=== PATIENT | female | born 1960 | race Caucasian/White ===

== ENCOUNTER 2017-03-05 07:18 | Inpatient (IN) | payer BC ==
[2017-03-05] MEDS ORDERED: 0.9 % SODIUM CHLORIDE 1,000 ML BAG IV ONE (07:44)
[2017-03-05 07:53] LABS: BASO % 0.3 % (0-6); HEMATOCRIT 38.7 % (35.0-47.0); LYMPH % 19.1 % (16-45); MEAN CELL VOLUME 89.6 fl (81-97); MEAN CORPUSCULAR HEMOGLOBIN 30.1 pg (27-33); MEAN CORPUSCULAR HGB CONC 33.6 g/dl (32-36); MEAN PLATELET VOLUME 9.5 fl (7.4-10.4); MONO % 6.6 % (0-9); PLATELET COUNT 303 K/uL (130-400); RED BLOOD COUNT 4.32 M/uL (3.80-5.40); WHITE BLOOD COUNT W/O DIFF 7.9 K/uL (4.2-12.2)
[2017-03-05 08:09] LABS: ALB/GLOB RATIO 1.3 (1.1-1.8); ALBUMIN 4.4 gm/dL (3.5-5.0); ALKALINE PHOSPHATASE 84 U/L (38-126); ALT/SGPT 50 U/L (9-52); ANION GAP 12.4 (7-16); AST/SGOT 18 U/L (14-36); BILIRUBIN,TOTAL 0.82 mg/dL (0.2-1.3); BLOOD UREA NITROGEN 15 mg/dL (7-17); CARBON DIOXIDE 25.6 mmol/L (22-30); CREATININE 0.9 mg/dL (0.52-1.04); EST GLOMERULAR FILTRATION RATE > 60 ml/min; GLUCOSE,RANDOM 98 mg/dL (70-110); LIPASE 170 U/L (23-300); TOTAL PROTEIN 7.7 gm/dL (6.3-8.2)
--- NOTE | 2017-03-05 09:00 | Emergency Department Record ---
History of Present Illness - General Chief Complaint: Abdominal Pain Stated Complaint: ABD PAIN Time Seen by Provider: 03/05/17 07:36 Source: Patient Mode of Arrival: Ambulatory Limitations: No limitations - History of Present Illness Initial Comments: pt has had intermittant abd pain for 5 days. it started with a hard bout of vomiting. pn is severe when it comes. it causes distention. pt has had no further n/v and has had no c/d. MD Complaint: Abdominal pain Onset/Timin -: Days(s) Location: Periumbilical Radiation: None Migration to: No migration Severity: Severe Quality: Cramping, Sharp Consistency: Intermittent Improves With: Nothing Worsens With: Nothing Associated Symptoms: Denies other symptoms, Vomiting - Related Data Patient : No Home Medications Medication Instructions Recorded Confirmed Last Taken No Home Med [NO HOME MEDS] 03/05/17 03/05/17 Unknown Allergies Allergy/AdvReac Type Severity Reaction Status Date / Time No Known Drug Allergies Allergy Verified 03/05/17 07:28 Travel Screening - Travel/Exposure Within Last 30 Days Have you traveled within the last 30 days?: No Review of Systems Reviewed: No additional complaints except as noted below Constitutional: Reports: As per HPI. Denies: Chills, Fever, Malaise, Night sweats, Weakness, Weight change Eyes: Reports: As per HPI. Denies: Eye discharge, Eye pain, Photophobia, Vision change ENT: Reports: As per HPI. Denies: Congestion, Dental pain, Ear pain, Epistaxis , Hearing loss, Throat pain Respiratory: Reports: As per HPI. Denies: Cough, Dyspnea, Hemoptysis, Stridor, Wheezes Cardiovascular: Reports: As per HPI. Denies: Arrhythmia, Chest pain, Dyspnea on exertion, Edema, Murmurs, Orthopnea, Palpitations, Paroxysmal nocturnal dyspnea, Rheumatic Fever, Syncope Endocrine: Reports: As per HPI. Denies: Fatigue, Heat or cold intolerance, Polydipsia, Polyuria Gastrointestinal: Reports: As per HPI. Denies: Abdominal pain, Constipation, Diarrhea, Hematemesis, Hematochezia, Melena, Nausea, Vomiting Genitourinary: Reports: As per HPI. Denies: Abnormal menses, Discharge, Dyspareunia, Dysuria, Frequency, Hematuria, Incontinence, Retention, Urgency Musculoskeletal: Reports: As per HPI. Denies: Arthralgia, Back pain, Gout, Joint swelling, Myalgia, Neck pain Skin: Reports: As per HPI. Denies: Bruising, Change in color, Change in hair/ nails, Lesions, Pruritus, Rash Neurological: Reports: As per HPI. Denies: Abnormal gait, Confusion, Headache, Numbness, Paresthesias, Seizure, Tingling, Tremors, Vertigo, Weakness Psychiatric: Reports: As per HPI. Denies: Anxiety, Auditory hallucinations, Depression, Homicidal thoughts, Suicidal thoughts, Visual hallucinations Hematological/Lymphatic: Reports: As per HPI. Denies: Anemia, Blood Clots, Easy bleeding, Easy bruising, Swollen glands Past Medical History - SOCIAL HISTORY Smoking Status: Never smoker Alcohol Use: Rare Drug Use: None - RESPIRATORY Hx Respiratory Disorders: No - CARDIOVASCULAR Hx Cardio Disorders: No - NEURO Hx Neuro Disorders: No - GI Hx GI Disorders: Yes Hx Abdominal Pain: Yes - Hx Genitourinary Disorders: No - ENDOCRINE Hx Endocrine Disorders: No - MUSCULOSKELETAL Hx Musculoskeletal Disorders: No - PSYCH Hx Psych Problems: No - HEMATOLOGY/ONCOLOGY Hx Hematology/Oncology Disorders: No Family Medical History Any Significant Family History?: No Physical Exam - General General Appearance: Alert, Oriented x3, Cooperative, Mild distress - Head Head exam: Normal inspection - Eye Eye exam: Normal appearance, PERRL, EOMI Pupils: Normal accommodation - ENT ENT exam: Normal exam, Mucous membranes moist, Normal external ear exam, Normal orophraynx Ear exam: Normal external inspection. negative: External canal tenderness Nasal Exam: Normal inspection. negative: Discharge, Sinus tenderness Mouth exam: Normal external inspection, Tongue normal Teeth exam: Normal inspection. negative: Dental caries Throat exam: Normal inspection. negative: Tonsillar erythema, Tonsillar exudate - Neck Neck exam: Normal inspection, Full ROM. negative: Tenderness - Respiratory Respiratory exam: Normal lung sounds bilaterally. negative: Respiratory distress - Cardiovascular Cardiovascular Exam: Normal rhythm, Normal heart sounds, Tachycardia - GI/Abdominal GI/Abdominal exam: Soft, Normal bowel sounds, Tenderness (epigastric) - Rectal Rectal exam: Deferred - exam: Deferred - Extremities Extremities exam: Normal inspection, Full ROM, Normal capillary refill. negative: Tenderness - Back Back exam: Reports: Normal inspection, Full ROM. Denies: Muscle spasm, Rash noted, Tenderness - Neurological Neurological exam: Alert, CN II-XII intact, Normal gait, Oriented X3 - Psychiatric Psychiatric exam: Normal affect, Normal mood - Skin Skin exam: Dry, Intact, Normal color, Warm Course Vital Signs 03/05/17 07:23 Temperature 97.9 F Pulse Rate 103 H Respiratory 20 Rate Blood Pressure 143/104 Pulse Ox 97 Medical Decision Making - Lab Data Result diagrams: 03/05/17 07:48 03/05/17 07:48 Lab Results 03/05/17 03/05/17 Range/Units 07:48 07:48 WBC 7.9 (4.2-12.2) K/uL RBC 4.32 (3.80-5.40) M/uL Hgb 13.0 (11.6-16.0) gm/dl Hct 38.7 (35.0-47.0) % MCV 89.6 (81-97) fl MCH 30.1 (27-33) pg MCHC 33.6 (32-36) g/dl RDW 12.0 (11.5-14.5) % Plt Count 303 (130-400) K/uL MPV 9.5 (7.4-10.4) fl Gran % 72.0 (47-80) % Lymphocytes % 19.1 (16-45) % Monocytes % 6.6 (0-9) % Eosinophils % 2.0 (0-6) % Basophils % 0.3 (0-6) % Sodium 141 (136-145) mmol/L Potassium 4.2 (3.5-5.1) mmol/L Chloride 103 (98-107) mmol/L Carbon Dioxide 25.6 (22-30) mmol/L Anion Gap 12.4 (7-16) BUN 15 (7-17) mg/dL Creatinine 0.9 (0.52-1.04) mg/dL Estimated GFR > 60 ml/min Random Glucose 98 (70-110) mg/dL Calcium 10.0 (8.5-10.1) mg/dL Total Bilirubin 0.82 (0.2-1.3) mg/dL AST 18 (14-36) U/L ALT 50 (9-52) U/L Alkaline Phosphatase 84 (38-126) U/L Total Protein 7.7 (6.3-8.2) gm/dL Albumin 4.4 (3.5-5.0) gm/dL Globulin 3.3 (1.4-4.8) gm/dL Albumin/Globulin Ratio 1.3 (1.1-1.8) Lipase 170 (23-300) U/L Disposition Disposition: Admit Clinical Impression: Acute pancreatitis Qualifiers: Pancreatitis type: idiopathic Acute pancreatitis complication: unspecified Qualified Code(s): K85.00 - Idiopathic acute pancreatitis without necrosis or infection Disposition: Still a Patient at [facility] Decision to Admit: Admit from ER Decision to Admit Date: 03/05/17 Decision to Admit Time: 10:45 Forms: Patient Portal Access Quality - Quality Measures Quality Measures: N/A - Blood Pressure Screening Does Patient Have Any of the Following: No Blood Pressure Classification: Hypertensive Reading Systolic Measurement: 143 Diastolic Measurement: 104 Screening for High Blood Pressure: < First Hypertensive BP, F/U Documented > [ [id number]] First Hypertensive Follow-up Interventions: Follow-up with rescreen GT 1 day and LT 4 weeks.
[2017-03-05 09:56] LABS: URINE APPEARANCE CLEAR; URINE BILIRUBIN NEGATIVE (NEGATIVE); URINE BLOOD TRACE-I (NEGATIVE); URINE COLOR YELLOW; URINE GLUCOSE (UA) NEGATIVE (NEGATIVE); URINE KETONE TRACE (NEGATIVE); URINE NITRITE NEGATIVE (NEGATIVE); URINE PROTEIN NEGATIVE (NEGATIVE); URINE UROBILINOGEN 0.2 E.U./dL (0.20 - 1.00)
[2017-03-05 10:15] LABS: URINE BACTERIA FEW; URINE EPITHELIAL CELLS 0 - 2 (FEW); URINE LEUKOCYTE ESTERASE TRACE (NEGATIVE); URINE RBC 0 - 2 (NONE SEEN); URINE WBC 0 - 2 (0-2/hpf)
--- NOTE | 2017-03-05 11:18 | History & Physical ---
History of Present Illness - Date of Service Date of Service for History & Physical: 03/05/17 - History of Present Illness History of Present Illness: 56 yo female admitted w/ acute pancreatitis. PMHx is unremarkable. Patient presented w/ 5 days of abdominal pain. Described as bloating, pressure , sharp. Intermittent, Located in epigastrium and RUQ. Aggravated by any po intake including water. Alleviated by sitting still, fasting. Associated symptoms include nausea, vomiting, loose stool, dizziness/fever (none since last sunday), gas and bloating. In addition, patient reports 15-20 lb's unintentional weight loss. upon presentation, T 97.9, HR 103, BP 143/104, RR 20, pulse ox 97. CBC, CMP relatively unremarkable. amylase, lipase and lactic acid are normal. CTA: suggests pancreatitis. Patient given IV bolus of NS and admitted for further medical management. This afternoon, patient is lying in bed with family at bedside. Admits to intermittent epigastric pain radiating to RUQ of abdomen. States she's frustrated and doesn't understand why she has pancreatitis. Denies fever, chills, n/v, cough, sob, cp, headache, dizziness, lightheadedness, dysuria, hematuria, or skin color changes. She denies any h/o gallbladder & pulmonary issues. No ETOH use. denies h/o smoking or drug use. She's not on any outpatient medications. No family h/o autoimmune disease. Does not have a family doctor. Denies recent hospitalization, sick contacts or travel. 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 States she went to an urgent care in December. She was told she was dehydrated and had a possible infection. She was started on Cephalexin at that time. Cephalexin was then stopped as this caused her loose, watery stool. She states that since being on Cephalexin, she has experienced 2-3 loose stools daily. Believes she's lost 15-20 #'s unintentionally since December. Patient looking to move closer to [place] and would like to est care with PCP in that area. PCP: None Travel Screening - Travel/Exposure Within Last 30 Days Have you traveled within the last 30 days?: No Review of Systems Constitutional: Reports: As per HPI. Denies: Chills, Fever, Malaise, Night sweats, Weakness, Weight change Eyes: Reports: As per HPI. Denies: Eye discharge, Eye pain, Photophobia, Vision change ENT: Reports: As per HPI. Denies: Congestion, Dental pain, Ear pain, Epistaxis , Hearing loss, Throat pain Respiratory: Reports: As per HPI. Denies: Cough, Dyspnea, Hemoptysis, Stridor, Wheezes Cardiovascular: Reports: As per HPI. Denies: Arrhythmia, Chest pain, Dyspnea on exertion, Edema, Murmurs, Orthopnea, Palpitations, Paroxysmal nocturnal dyspnea, Rheumatic Fever, Syncope Endocrine: Reports: As per HPI. Denies: Fatigue, Heat or cold intolerance, Polydipsia, Polyuria Gastrointestinal: Reports: As per HPI, Abdominal pain (epigastric, RUQ, no R/G) . Denies: Constipation, Diarrhea, Hematemesis, Hematochezia, Melena, Nausea, Vomiting Genitourinary: Reports: As per HPI. Denies: Abnormal menses, Discharge, Dyspareunia, Dysuria, Frequency, Hematuria, Incontinence, Retention, Urgency Musculoskeletal: Reports: As per HPI. Denies: Arthralgia, Back pain, Gout, Joint swelling, Myalgia, Neck pain Skin: Reports: As per HPI. Denies: Bruising, Change in color, Change in hair/ nails, Lesions, Pruritus, Rash Neurological: Reports: As per HPI. Denies: Abnormal gait, Confusion, Headache, Numbness, Paresthesias, Seizure, Tingling, Tremors, Vertigo, Weakness Psychiatric: Reports: As per HPI. Denies: Anxiety, Auditory hallucinations, Depression, Homicidal thoughts, Suicidal thoughts, Visual hallucinations Hematological/Lymphatic: Reports: As per HPI. Denies: Anemia, Blood Clots, Easy bleeding, Easy bruising, Swollen glands Past Medical History - SOCIAL HISTORY Smoking Status: Never smoker Alcohol Use: Rare Drug Use: None - RESPIRATORY Hx Respiratory Disorders: No - CARDIOVASCULAR Hx Cardio Disorders: No - NEURO Hx Neuro Disorders: No - GI Hx GI Disorders: Yes Hx Abdominal Pain: Yes - Hx Genitourinary Disorders: No - ENDOCRINE Hx Endocrine Disorders: No - MUSCULOSKELETAL Hx Musculoskeletal Disorders: No - PSYCH Hx Psych Problems: No - HEMATOLOGY/ONCOLOGY Hx Hematology/Oncology Disorders: No Family Medical History Any Significant Family History?: No H&P Meds/Allergies - Allergies Allergies: Allergies Allergy/AdvReac Type Severity Reaction Status Date / Time No Known Drug Allergies Allergy Verified 03/05/17 07:28 - Home Medications Home Medications Medication Instructions Recorded Confirmed Last Taken No Home Med [NO HOME MEDS] 03/05/17 03/05/17 Unknown Physical Exam - Vital Signs Vital Signs: Vital Signs - Last 24 Hrs Temp Pulse Pulse Resp BP BP Pulse Ox 03/05/17 10:00 97.9 F 81 20 147/99 98 03/05/17 07:23 97.9 F 103 H 20 143/104 97 - General General Appearance: Alert, Oriented x3, Cooperative, No acute distress Limitations: No limitations - Head Head exam: Normal inspection - Eye Eye exam: Normal appearance, PERRL, EOMI Pupils: Normal accommodation - ENT ENT exam: Normal exam, Mucous membranes moist, Normal external ear exam, Normal orophraynx Ear exam: Normal external inspection. negative: External canal tenderness Nasal Exam: Normal inspection. negative: Discharge, Sinus tenderness Mouth exam: Normal external inspection, Tongue normal Teeth exam: Normal inspection. negative: Dental caries Throat exam: Normal inspection. negative: Tonsillar erythema, Tonsillar exudate - Neck Neck exam: Normal inspection, Full ROM. negative: Tenderness - Respiratory Respiratory exam: Normal lung sounds bilaterally. negative: Respiratory distress - Cardiovascular Cardiovascular Exam: Regular rate, Normal rhythm, Normal heart sounds - GI/Abdominal GI/Abdominal exam: Soft, Normal bowel sounds, Tenderness (epigastric, RUQ, ). negative: Guarding, Rebound - Rectal Rectal exam: Deferred - exam: Deferred - Extremities Extremities exam: Normal inspection, Full ROM, Normal capillary refill. negative: Tenderness - Back Back exam: Reports: Normal inspection, Full ROM. Denies: Muscle spasm, Rash noted, Tenderness - Neurological Neurological exam: Alert, CN II-XII intact, Normal gait, Oriented X3 - Psychiatric Psychiatric exam: Normal affect, Normal mood - Skin Skin exam: Dry, Intact, Normal color, Warm Results - Labs Result Diagrams: 03/05/17 07:48 03/05/17 07:48 Labs Last 24 Hours: Laboratory Results - last 24 hr 03/05/17 03/05/17 03/05/17 07:30 07:48 07:48 WBC 7.9 RBC 4.32 Hgb 13.0 Hct 38.7 MCV 89.6 MCH 30.1 MCHC 33.6 RDW 12.0 Plt Count 303 MPV 9.5 Gran % 72.0 Lymphocytes % 19.1 Monocytes % 6.6 Eosinophils % 2.0 Basophils % 0.3 Sodium 141 Potassium 4.2 Chloride 103 Carbon Dioxide 25.6 Anion Gap 12.4 BUN 15 Creatinine 0.9 Estimated GFR > 60 Random Glucose 98 Lactic Acid Calcium 10.0 Total Bilirubin 0.82 AST 18 ALT 50 Alkaline Phosphatase 84 Total Protein 7.7 Albumin 4.4 Globulin 3.3 Albumin/Globulin Ratio 1.3 Amylase 77 Lipase 170 Urine Color Urine Appearance Urine pH Ur Specific [place] Urine Protein Urine Glucose (UA) Urine Ketones Urine Blood Urine Nitrite Urine Bilirubin Urine Urobilinogen Ur Leukocyte Esterase Urine RBC Urine WBC Ur Epithelial Cells Urine Bacteria 03/05/17 03/05/17 09:30 09:50 WBC RBC Hgb Hct MCV MCH MCHC RDW Plt Count MPV Gran % Lymphocytes % Monocytes % Eosinophils % Basophils % Sodium Potassium Chloride Carbon Dioxide Anion Gap BUN Creatinine Estimated GFR Random Glucose Lactic Acid 0.7 Calcium Total Bilirubin AST ALT Alkaline Phosphatase Total Protein Albumin Globulin Albumin/Globulin Ratio Amylase Lipase Urine Color Yellow Urine Appearance Clear Urine pH 5.5 Ur Specific [place] 1.010 Urine Protein Negative Urine Glucose (UA) Negative Urine Ketones Trace H Urine Blood Trace-i Urine Nitrite Negative Urine Bilirubin Negative Urine Urobilinogen 0.2 Ur Leukocyte Esterase Trace H Urine RBC 0 - 2 Urine WBC 0 - 2 Ur Epithelial Cells 0 - 2 Urine Bacteria Few VTE H&P Assessment - Risk for VTE Risk for VTE: Yes Risk Level: Low Risk Assessment Date: 03/05/17 Risk Assessment Time: 12:00 VTE Orders Placed or Will Be Placed: Yes Plan - Inpatient Certification Inpatient Certification: risk factors: pancreatitis, abdominal pain, n/v, decreased appetite, dehydration treatment: NPO, IVFs, IV pain medication, further imaging nights: 2-3 nights home plan: home, self care 03/05/17 13:36 - Detailed Diagnosis and Plan (1) Acute pancreatitis Current Visit: Yes Status: Acute Qualifiers: Pancreatitis type: idiopathic Acute pancreatitis complication: unspecified Qualified Code(s): K85.00 - Idiopathic acute pancreatitis without necrosis or infection Base Code: K85.90 - ACUTE PANCREATITIS WITHOUT NECROSIS OR INFECTION, UNSP Comment: 03/05- unclear etiology? Will check autoimmune labs & obtain abd u/s. - patient denies medication use, etoh use, or h/o gallbladder issues - CTA: pancreatitis, large calified gallstone in the gallbladder - amylase/lipase, lactic acid and wbc normal - afebrile - NPO, ice chips, 125 mls/hr of IVNS, IV pain control and anti emetic PRN - GI referral as outpatient (2) RUQ abdominal pain Current Visit: Yes Status: Acute Base Code: R10.11 - RIGHT UPPER QUADRANT PAIN Comment: 03/05- pancreatitis vs. biliary vs. other? - will obtain abd u/s to further evaluate RUQ pain (3) Full code status Current Visit: Yes Status: Acute Base Code: Z78.9 - OTHER SPECIFIED HEALTH STATUS Comment: 03/05- pt is full code (4) DVT prophylaxis Current Visit: Yes Status: Acute Base Code: [id number] - Comment: 03/05- low risk. SCDs WIB. patient ambulating the room.
[2017-03-05] MEDS ORDERED: 0.9 % SODIUM CHLORIDE 1000ML 1,000 ML IV SCH (12:49)
[2017-03-05] MEDS: 0.9 % SODIUM CHLORIDE 1000ML 1,000 ML IV PRN ×2 (14:36→22:44)
--- NOTE | 2017-03-05 15:45 | CT SCAN REPORT ---
EXAM: CT SCAN ABDOMEN/PELVIS WO CONTRAST HISTORY: ABDOMINAL PAIN WITH NAUSEA FOR FOUR-FIVE DAYS. TECHNIQUE: Helical CT examination of the abdomen and pelvis is performed without oral or intravenous contrast administration. Lack of oral and IV contrast utilization limits evaluation of the bowel and solid viscera respectively. COMPARISON: None. FINDINGS: Minor patchy predominantly linear opacities are noted in each lung base, left slightly greater than right, consistent with atelectasis, scarring, or less likely infiltrate. No lung base consolidation, pleural effusion, nor pericardial effusion. The heart is not enlarged. There is a large calcified stone within the gallbladder body/neck measuring 2.5 cm in diameter. No gross gallbladder wall thickening is, however, seen and there is no definite biliary ductal dilatation. No suspicious focal abnormality demonstrated within the liver, spleen, adrenal glands, nor kidneys. No hydronephrosis. The tail of the pancreas appears mildly thickened with peripancreatic fat stranding suspicious for acute pancreatitis. No definite pancreatic mass. No intraabdominal nor retroperitoneal lymphadenopathy is seen. The abdominal aorta is without aneurysmal dilatation. No pelvic mass nor lymphadenopathy. Trace free fluid is demonstrated in the cul- de-sac. This is nonspecific though likely physiologic. No intrinsic urinary bladder abnormality is seen. There is coarse calcification within the uterine fundus measuring 8 mm. This is likely a small calcified fibroid. No gross bowel dilatation nor bowel wall thickening is seen. Occasional diverticula are noted within the distal colon without evidence of diverticulitis. The inflammatory changes involving the tail of the pancreas cause mild thickening of Gerota's fascia on the left and minor thickening of the lateral conal fascia superiorly. No lytic or blastic bone lesion. There are degenerative changes scattered within the visualized spine most pronounced at the lower levels. IMPRESSION: 1. THICKENING OF THE PANCREATIC TAIL AND LEFT ASPECT OF THE PANCREATIC BODY WITH PERIPANCREATIC FAT STRANDING AND ASSOCIATED MILD THICKENING OF GEROTA'S FASCIA CONSISTENT WITH ACUTE PANCREATITIS. NO EVIDENCE OF ACUTE HEMORRHAGE NOR PSEUDOCYST FORMATION. 2. CHOLELITHIASIS WITHOUT GROSS GALLBLADDER WALL THICKENING OR PERICHOLECYSTIC FLUID. NO BILIARY DUCTAL DILATATION. 3. TRACE FREE FLUID IN THE CUL-DE-SAC IS NONSPECIFIC. 4. SMALL CALCIFIED FIBROID WITHIN THE UTERINE FUNDUS. 5. OCCASIONAL DIVERTICULA WITHIN THE DISTAL COLON WITHOUT EVIDENCE OF DIVERTICULITIS. 6. MINOR PATCHY OPACITIES IN EACH LUNG BASE, LEFT GREATER THAN RIGHT, CONSISTENT WITH ATELECTASIS OR LESS LIKELY INFILTRATE. NOT MENTIONED ABOVE IS TRACE FLUID IN THE POSTERIOR LEFT BASILAR PLEURAL SPACE. JOB NUMBER: [id number] MTDD
[2017-03-05] MEDS: HYDROMORPHONE HCL 1MG/ML **SYRINGE IVP PRN ×2 (16:03→23:09)
--- NOTE | 2017-03-06 03:36 | ULTRASOUND REPORT ---
DATE: 03/05/2017 at 12:52. EXAM: ULTRASOUND OF THE ABDOMEN, COMPLETE. HISTORY: Right upper quadrant abdominal pain for five days. Vomiting for five days. TECHNIQUE: Routine ultrasound examination of the abdomen is performed. COMPARISON: Same-day CT examination of the abdomen and pelvis without contrast. FINDINGS: The pancreatic margins, particularly at the level of the body and tail, are not well visualized, possibly relating to edema seen on same-day CT examination. The findings on CT examination are suspicious for pancreatitis. The pancreatic neck and head are not well visualized due to overlying bowel gas. The abdominal aorta is without aneurysmal dilatation, and the inferior vena cava is patent. The liver is somewhat echogenic and coarsened in echotexture throughout. This is most commonly seen with steatosis but can also be seen with hepatitis and cirrhosis. No focal hepatic mass is seen. No intra- nor extrahepatic biliary ductal dilatation identified with the common hepatic duct measuring 2.6 mm. A large shadowing stone is noted within the gallbladder neck measuring up to 1.4 cm. Additional small stones are present. There is apparent wall thickening of the gallbladder measuring up to 4.6 mm. No pericholecystic fluid is, however, seen. No positive sonographic Staples's sign is reported. The spleen is not enlarged and is homogeneous in echotexture. Screening evaluation of the kidneys does not demonstrate hydronephrosis or mass , with the right kidney measuring 9.6 cm in length and the left kidney measuring 11.6 mm in length. IMPRESSION: 1. CHOLELITHIASIS WITH GALLBLADDER WALL THICKENING BUT WITHOUT PERICHOLECYSTIC FLUID. 2. THE MARGINS OF THE PANCREATIC BODY AND TAIL ARE ILL DEFINED, CORRESPONDING TO AN AREA OF EDEMA SEEN ON SAME-DAY CT EXAMINATION. AGAIN, PANCREATITIS IS CONSIDERED. 3. NO BILIARY DUCTAL DILATATION IS PRESENT. JOB NUMBER: [id number] [facility]
[2017-03-06] MEDS: HYDROMORPHONE HCL 1MG/ML **SYRINGE IVP PRN ×4 (04:46→20:18)
[2017-03-06 06:29] LABS: BASO % 0.3 % (0-6); EOS % 3.9 % (0-6); HEMATOCRIT 40.3 % (35.0-47.0); HEMOGLOBIN 13.3 gm/dl (11.6-16.0); LYMPH % 16.5 % (16-45); MEAN CORPUSCULAR HEMOGLOBIN 29.7 pg (27-33); MONO % 7.3 % (0-9); PLATELET COUNT 280 K/uL (130-400); RED BLOOD COUNT 4.48 M/uL (3.80-5.40); RED CELL DISTRIBUTION WIDTH 12.1 % (11.5-14.5); WHITE BLOOD COUNT W/O DIFF 6.4 K/uL (4.2-12.2)
[2017-03-06] MEDS: 0.9 % SODIUM CHLORIDE 1000ML 1,000 ML IV PRN ×3 (06:57→20:33)
[2017-03-06 07:15] LABS: ALB/GLOB RATIO 1.4 (1.1-1.8); ALBUMIN 3.5 g/dL (4.0-5.0); ALKALINE PHOSPHATASE 64 U/L (35-104); ALT/SGPT 15 U/L (<33); AST/SGOT 12 U/L (10.0-35.0); CREATININE 0.7 mg/dL (0.5-0.9); EST GLOMERULAR FILTRATION RATE > 60 mL/min; GLUCOSE,RANDOM 66 mg/dL (74-109)
[2017-03-06] MEDS: CEFAZOLIN 2 Gram 2 GM/50 ML BAG IVPB SCH ×2 (11:42→18:45)
[2017-03-06] MEDS: PANTOPRAZOLE SODIUM IV 40 MG VIAL IVP SCH ×2 (11:42→22:27)
[2017-03-06] MEDS: ONDANSETRON HCL IV 4 MG/2 ML VIAL IVP PRN (12:37)
[2017-03-06] MEDS ORDERED: FLUCONAZOLE 100 MG TABLET PO ONE (12:56)
--- NOTE | 2017-03-06 13:25 | Physician Progress Note ---
Subjective - Date Date of Physician Progress Note: 03/06/17 - Subjective Subjective Comment: Patient continues to report significant abdominal pain, worsening over RUQ. Having loose stools. Nausea is controlled. Reports was in good health until she was on antibiotics in December. After, began having diarrhea that never returned to formed or solid as of today. Reports worsening of loose stool, abdominal pain in epigastric region, nausea and poor appetite for 5 days prior to arrival to ED. Has family history of immunoglobulin A deficiency Objective - Vital Signs Vital Signs: Vital Signs - Last 24 Hrs Temp Pulse Resp BP BP Pulse Ox 03/06/17 11:43 98.1 F 128/74 03/06/17 09:00 18 03/06/17 05:00 98.1 F 71 18 128/74 96 03/05/17 22:54 98.0 F 78 18 113/92 97 03/05/17 15:22 97.6 F 80 18 140/83 97 - General General Appearance: Alert, Oriented x3, Cooperative, No acute distress Limitations: No limitations - Head Head exam: Normal inspection - Eye Eye exam: Normal appearance, PERRL, EOMI Pupils: Normal accommodation - ENT ENT exam: Normal exam, Mucous membranes moist, Normal external ear exam, Normal orophraynx Ear exam: Normal external inspection. negative: External canal tenderness Nasal Exam: Normal inspection. negative: Discharge, Sinus tenderness Mouth exam: Normal external inspection, Tongue normal Teeth exam: Normal inspection. negative: Dental caries Throat exam: Normal inspection. negative: Tonsillar erythema, Tonsillar exudate - Neck Neck exam: Normal inspection, Full ROM. negative: Tenderness - Respiratory Respiratory exam: Normal lung sounds bilaterally. negative: Respiratory distress - Cardiovascular Cardiovascular Exam: Regular rate, Normal rhythm, Normal heart sounds - GI/Abdominal GI/Abdominal exam: Soft, Normal bowel sounds, Tenderness (epigastric, RUQ, ). negative: Guarding, Rebound - Rectal Rectal exam: Deferred - exam: Deferred - Extremities Extremities exam: Normal inspection, Full ROM, Normal capillary refill. negative: Tenderness - Back Back exam: Reports: Normal inspection, Full ROM. Denies: Muscle spasm, Rash noted, Tenderness - Neurological Neurological exam: Alert, CN II-XII intact, Normal gait, Oriented X3 - Psychiatric Psychiatric exam: Normal affect, Normal mood - Skin Skin exam: Dry, Intact, Normal color, Warm Assessment and Plan - Assessment and Plan (1) Acute pancreatitis Current Visit: Yes Status: Acute Qualifiers: Pancreatitis type: idiopathic Acute pancreatitis complication: unspecified Qualified Code(s): K85.00 - Idiopathic acute pancreatitis without necrosis or infection Base Code: K85.90 - ACUTE PANCREATITIS WITHOUT NECROSIS OR INFECTION, UNSP Comment: 03/06- unclear etiology? - autoimmune labs pending - abdominal U/S showing gallbladder wall thickening- not found on initial CT, will initiate Cefazolin 2gm QID empirically - remains afebrile, labs unremarkable, VSS - patient denies medication use, etoh use, or h/o gallbladder issues - CTA: pancreatitis, large calified gallstone in the gallbladder - NPO, ice chips, 225 mls/hr of IVNS, IV pain control and anti emetic PRN - GI consult tomorrow - will obtain stool studies with 2 month history loose stool after antibiotic use (2) RUQ abdominal pain Current Visit: Yes Status: Acute Base Code: R10.11 - RIGHT UPPER QUADRANT PAIN Comment: 03/06- pancreatitis vs. biliary vs. other? - abdominal ultrasound with gallbladder wall thickening, new from previous CT scan - empiric treatment with Cefazolin - pain has not improved, will discuss with Dr Arguelles (3) DVT prophylaxis Current Visit: Yes Status: Acute Base Code: [id number] - Comment: 03/06- low risk. SCDs WIB. patient ambulating the room. (4) Full code status Current Visit: Yes Status: Acute Base Code: Z78.9 - OTHER SPECIFIED HEALTH STATUS Comment: 03/06- pt is full code Results - Labs Result Diagrams: 03/06/17 06:20 03/06/17 06:20 Labs Last 24 Hours: Laboratory Results - last 24 hr 03/06/17 03/06/17 03/06/17 06:00 06:20 06:20 WBC 6.4 RBC 4.48 Hgb 13.3 Hct 40.3 MCV 90.0 MCH 29.7 MCHC 33.0 RDW 12.1 Plt Count 280 MPV 9.0 Gran % 72.0 Lymphocytes % 16.5 Monocytes % 7.3 Eosinophils % 3.9 Basophils % 0.3 Sodium Potassium Chloride Carbon Dioxide Anion Gap BUN Creatinine Estimated GFR Random Glucose Calcium Total Bilirubin AST ALT Alkaline Phosphatase Total Protein Albumin Globulin Albumin/Globulin Ratio Triglycerides 36 Cholesterol 105 LDL Cholesterol Measurd 52.0 VLDL Cholesterol 7 HDL Cholesterol 46 Amylase 51 Lipase 03/06/17 03/06/17 06:20 06:20 WBC RBC Hgb Hct MCV MCH MCHC RDW Plt Count MPV Gran % Lymphocytes % Monocytes % Eosinophils % Basophils % Sodium 142 Potassium 4.4 Chloride 106 Carbon Dioxide 23.0 Anion Gap 13.0 BUN 27.5 H Creatinine 0.7 Estimated GFR > 60 Random Glucose 66 L Calcium 8.6 Total Bilirubin 0.50 AST 12 ALT 15 Alkaline Phosphatase 64 Total Protein 6.0 L Albumin 3.5 L Globulin 2.5 Albumin/Globulin Ratio 1.4 Triglycerides Cholesterol LDL Cholesterol Measurd VLDL Cholesterol HDL Cholesterol Amylase Lipase 39 DVT/PE Assessment - Risk for VTE Risk for VTE: No Risk Level: Low Risk Assessment Date: 03/05/17 Risk Assessment Time: 12:00 VTE Orders Placed or Will Be Placed: Yes - Active Medicaitons Current Medications: Current Medications Fluconazole (Diflucan) 150 mg PO NOW ONE Stop: 03/06/17 12:57 Hydromorphone HCl (Dilaudid) 0.5 mg IVP Q4HR PRN PRN Reason: Abdominal Pain Last Admin: 03/06/17 11:42 Dose: 0.5 mg Sodium Chloride () 1,000 mls @ 225 mls/hr IV .Q4H27M PRN PRN Reason: LARGE VOLUME IV Cefazolin Sodium (Kefzol) 2 gm in 50 mls @ 125 mls/hr IVPB Q8H MARILUZ Stop: 03/11/17 10:16 Last Infusion: 03/06/17 12:38 Dose: Infused Ondansetron HCl (Zofran) 4 mg IVP Q4H PRN PRN Reason: NAUSEA Last Admin: 03/06/17 12:37 Dose: 4 mg Pantoprazole Sodium (Protonix Iv) 40 mg IVP Q12HR MARILUZ Last Admin: 03/06/17 11:42 Dose: 40 mg Temazepam (Restoril) 15 mg PO QHS PRN PRN Reason: INSOMNIA AMI Plan - Labs Result Diagrams: 03/06/17 06:20 03/06/17 06:20
[2017-03-06 13:54] LABS: ANTINUCLEAR ANTIBODY TITER 1:40 (NEGATIVE)
[2017-03-06] MEDS: TEMAZEPAM 15 MG CAPSULE PO PRN (22:27)
[2017-03-07] MEDS: 0.9 % SODIUM CHLORIDE 1000ML 1,000 ML IV PRN (01:52)
[2017-03-07] MEDS: CEFAZOLIN 2 Gram 2 GM/50 ML BAG IVPB SCH ×3 (01:53→18:13)
[2017-03-07] MEDS: HYDROMORPHONE HCL 1MG/ML **SYRINGE IVP PRN ×4 (05:16→22:50)
[2017-03-07 06:55] LABS: BASO % 0.2 % (0-6); EOS % 3.5 % (0-6); GRAN % 69.5 % (47-80); HEMATOCRIT 41.4 % (35.0-47.0); LYMPH % 20.7 % (16-45); MEAN CELL VOLUME 88.7 fl (81-97); MEAN CORPUSCULAR HGB CONC 33.8 g/dl (32-36); MEAN PLATELET VOLUME 9.4 fl (7.4-10.4); MONO % 6.1 % (0-9); PLATELET COUNT 300 K/uL (130-400); RED BLOOD COUNT 4.67 M/uL (3.80-5.40); RED CELL DISTRIBUTION WIDTH 11.9 % (11.5-14.5)
[2017-03-07 07:15] LABS: ALB/GLOB RATIO 1.3 (1.1-1.8); ALBUMIN 3.5 g/dL (4.0-5.0); ALKALINE PHOSPHATASE 66 U/L (35-104); ALT/SGPT 13 U/L (<33); AST/SGOT 14 U/L (10.0-35.0); BLOOD UREA NITROGEN 20.9 mg/dL (12.6-42.6); CREATININE 0.7 mg/dL (0.5-0.9); EST GLOMERULAR FILTRATION RATE > 60 mL/min; GLUCOSE,RANDOM 59 mg/dL (74-109); TOTAL PROTEIN 6.2 g/dL (6.6-8.7)
[2017-03-07] MEDS ORDERED: DEXTROSE 50 % IVP 50 ML DISP.SYRIN IVP ONE (07:45)
[2017-03-07] MEDS: PANTOPRAZOLE SODIUM IV 40 MG VIAL IVP SCH ×2 (10:15→22:50)
--- NOTE | 2017-03-07 12:12 | Physician Progress Note ---
Subjective - Date Date of Physician Progress Note: 03/07/17 - Subjective Subjective Comment: Reports pain remains to RUQ, less tender LUQ and LLQ. No nausea, no further stooling. Continues to require IV pain management. Case discussed with Dr Arguelles yesterday, abdominal US with new finding of gallbladder wall thickening as compared to CT abdomen. HIDA scan to be done today at 11am, empiric treatment started with Cefazolin. Has been tolerating well without adverse reaction. Has remained afebrile. Objective - Vital Signs Vital Signs: Vital Signs - Last 24 Hrs Temp Pulse Resp BP Pulse Ox 03/07/17 09:00 97.9 F 64 18 160/92 99 03/07/17 05:00 97.8 F 71 18 139/82 97 03/06/17 21:00 97.6 F 56 L 16 123/74 96 03/06/17 17:00 98.3 F 56 L 18 132/80 100 03/06/17 13:00 98.6 F 67 18 140/81 98 - General General Appearance: Alert, Oriented x3, Cooperative, No acute distress Limitations: No limitations - Head Head exam: Normal inspection - Eye Eye exam: Normal appearance, PERRL, EOMI Pupils: Normal accommodation - ENT ENT exam: Normal exam, Mucous membranes moist, Normal external ear exam, Normal orophraynx Ear exam: Normal external inspection. negative: External canal tenderness Nasal Exam: Normal inspection. negative: Discharge, Sinus tenderness Mouth exam: Normal external inspection, Tongue normal Teeth exam: Normal inspection. negative: Dental caries Throat exam: Normal inspection. negative: Tonsillar erythema, Tonsillar exudate - Neck Neck exam: Normal inspection, Full ROM. negative: Tenderness - Respiratory Respiratory exam: Normal lung sounds bilaterally. negative: Respiratory distress - Cardiovascular Cardiovascular Exam: Regular rate, Normal rhythm, Normal heart sounds - GI/Abdominal GI/Abdominal exam: Soft, Normal bowel sounds, Tenderness (RUQ> LLQ and LUQ). negative: Guarding, Rebound - Rectal Rectal exam: Deferred - exam: Deferred - Extremities Extremities exam: Normal inspection, Full ROM, Normal capillary refill. negative: Tenderness - Back Back exam: Reports: Normal inspection, Full ROM. Denies: Muscle spasm, Rash noted, Tenderness - Neurological Neurological exam: Alert, CN II-XII intact, Normal gait, Oriented X3 - Psychiatric Psychiatric exam: Normal affect, Normal mood - Skin Skin exam: Dry, Intact, Normal color, Warm Assessment and Plan - Assessment and Plan (1) Acute pancreatitis Current Visit: Yes Status: Acute Qualifiers: Pancreatitis type: idiopathic Acute pancreatitis complication: unspecified Qualified Code(s): K85.00 - Idiopathic acute pancreatitis without necrosis or infection Base Code: K85.90 - ACUTE PANCREATITIS WITHOUT NECROSIS OR INFECTION, UNSP Comment: 03/07- unclear etiology? - glucose this am 56- 1 amp of D50 followed by D5NS @125/hr for nutritional support - AMINTA positive speckled with titre 1:40, will defer to GI upon consult tomorrow - abdominal U/S showing gallbladder wall thickening- not found on initial CT, continue Cefazolin 2gm Q 8hrs empirically - remains afebrile, labs unremarkable, VSS - patient denies medication use, etoh use, or h/o gallbladder issues - CTA: pancreatitis, large calified gallstone in the gallbladder - NPO, ice chips, IV pain control and anti emetic PRN - GI consult tomorrow - will obtain stool studies with 2 month history loose stool after antibiotic use (2) RUQ abdominal pain Current Visit: Yes Status: Acute Base Code: R10.11 - RIGHT UPPER QUADRANT PAIN Comment: 03/07- pancreatitis vs. biliary vs. other? - abdominal ultrasound with gallbladder wall thickening, new from previous CT scan - empiric treatment with Cefazolin - pain has not improved, case has been discussed with Dr Arguelles - RAJ phillips today (3) DVT prophylaxis Current Visit: Yes Status: Acute Base Code: [id number] - Comment: 03/07- low risk. SCDs WIB. patient ambulating the room. (4) Full code status Current Visit: Yes Status: Acute Base Code: Z78.9 - OTHER SPECIFIED HEALTH STATUS Comment: 03/07- pt is full code Results - Labs Result Diagrams: 03/07/17 06:30 03/07/17 06:30 Labs Last 24 Hours: Laboratory Results - last 24 hr 03/07/17 03/07/17 03/07/17 06:30 06:30 08:50 WBC 6.0 RBC 4.67 Hgb 14.0 Hct 41.4 MCV 88.7 MCH 30.0 MCHC 33.8 RDW 11.9 Plt Count 300 MPV 9.4 Gran % 69.5 Lymphocytes % 20.7 Monocytes % 6.1 Eosinophils % 3.5 Basophils % 0.2 Sodium 142 Potassium 3.9 Chloride 104 Carbon Dioxide 22.0 Anion Gap 16.0 BUN 20.9 Creatinine 0.7 Estimated GFR > 60 POC Glucose 147 H Random Glucose 59 L Calcium 8.7 Total Bilirubin 0.30 AST 14 ALT 13 Alkaline Phosphatase 66 Total Protein 6.2 L Albumin 3.5 L Globulin 2.7 Albumin/Globulin Ratio 1.3 DVT/PE Assessment - Risk for VTE Risk for VTE: No Risk Level: Low Risk Assessment Date: 03/05/17 Risk Assessment Time: 12:00 VTE Orders Placed or Will Be Placed: Yes - Active Medicaitons Current Medications: Current Medications Hydromorphone HCl (Dilaudid) 0.5 mg IVP Q4HR PRN PRN Reason: Abdominal Pain Last Admin: 03/07/17 05:16 Dose: 0.5 mg Sodium Chloride () 1,000 mls @ 225 mls/hr IV .Q4H27M PRN PRN Reason: LARGE VOLUME IV Last Infusion: 03/07/17 07:43 Dose: Infused Cefazolin Sodium (Kefzol) 2 gm in 50 mls @ 125 mls/hr IVPB Q8H MARILUZ Stop: 03/11/17 10:16 Last Infusion: 03/07/17 11:11 Dose: Infused Dextrose/Sodium Chloride () 1,000 mls @ 125 mls/hr IV .Q8H PRN PRN Reason: LARGE VOLUME IV Ondansetron HCl (Zofran) 4 mg IVP Q4H PRN PRN Reason: NAUSEA Last Admin: 03/06/17 12:37 Dose: 4 mg Pantoprazole Sodium (Protonix Iv) 40 mg IVP Q12HR MARILUZ Last Admin: 03/07/17 10:15 Dose: 40 mg Temazepam (Restoril) 15 mg PO QHS PRN PRN Reason: INSOMNIA Last Admin: 03/06/17 22:27 Dose: 15 mg AMI Plan - Labs Result Diagrams: 03/07/17 06:30 03/07/17 06:30
[2017-03-07 13:17] LABS: BLOOD UREA NITROGEN 27.5 mg/dL (6-20)
[2017-03-07 13:59] LABS: IGG TOTAL 850 mg/dL; IgG Subclass 1 375 mg/dL; IgG Subclass 2 406 mg/dL; IgG Subclass 3 59.1 mg/dL; IgG Subclass 4 32.5 mg/dL
[2017-03-07] MEDS: ONDANSETRON HCL IV 4 MG/2 ML VIAL IVP PRN (18:58)
[2017-03-07] MEDS: DEXTROSE 5 % AND 0.9 % NACL 1,000 ML IV PRN (20:53)
[2017-03-08] MEDS: HYDROMORPHONE HCL 1MG/ML **SYRINGE IVP PRN ×4 (02:37→22:59)
[2017-03-08] MEDS: CEFAZOLIN 2 Gram 2 GM/50 ML BAG IVPB SCH (02:38)
[2017-03-08] MEDS: DEXTROSE 5 % AND 0.9 % NACL 1,000 ML IV PRN ×3 (06:13→23:45)
--- NOTE | 2017-03-08 06:36 | NUCLEAR MEDICINE REPORT ---
DATE: 03/07/2017 at 1132. EXAM: NUCLEAR MEDICINE HEPATOBILIARY SCAN WITH CCK ADMINISTRATION. HISTORY: Left upper quadrant abdominal pain with nausea and vomiting for six days. Pancreatitis. TECHNIQUE: Following the intravenous administration of 6.1 millicuries of technetium-99M - mebrofenin via a right-sided IV, gamma camera images of the abdomen are obtained in the anterior projection for 65 minutes. The right lateral projection gamma camera image is obtained between 65 and 70 minutes post radiopharmaceutical administration, and an additional anterior projection image is obtained between 70 and 75 minutes. Next, 1.4 micrograms of cholecystokinin were administered intravenously and additional gamma camera images of the abdomen in the anterior projection were obtained for 21 minutes. A region of interest is drawn around the gallbladder activity, and a time- activity curve generated. COMPARISON: CT of the abdomen and pelvis without contrast dated 03/05/2017. Abdominal ultrasound dated 03/05/2017. FINDINGS: There is prompt, uniform accumulation of the radiopharmaceutical within the hepatocytes demonstrating a liver of normal contour. There is prompt excretion of the radiopharmaceutical into the biliary tree with small bowel activity visualized with confidence on the 10-15 minute image and gallbladder activity visualized with confidence on the 20-25 minute image. ON post-CCK images there is subjectively normal gallbladder contractility. The calculated ejection fraction of 78% is within limits of normal. IMPRESSION: NO SCINTIGRAPHIC EVIDENCE OF CYSTIC DUCT NOR COMMON BILE DUCT OBSTRUCTION. NORMAL GALLBLADDER CONTRACTILITY WITH AN EJECTION FRACTION OF 78%. JOB NUMBER: [id number] MTDD
[2017-03-08] MEDS: PANTOPRAZOLE SODIUM IV 40 MG VIAL IVP SCH ×2 (11:16→22:59)
--- NOTE | 2017-03-08 11:47 | Physician Progress Note ---
Subjective - Date Date of Physician Progress Note: 03/08/17 - Subjective Subjective Comment: Was given clear liquids yesterday evening after HIDA scan. Did not tolerate, had increase in LUQ and epigastric abdominal pain with associated bloating. No nausea, diarrhea, vomiting. Reports just time and returning to NPO improved pain and bloating. No new concerns from nursing. Awaiting GI consult today. Objective - Vital Signs Vital Signs: Vital Signs - Last 24 Hrs Temp Pulse Resp BP BP Pulse Ox 03/08/17 11:00 98.4 F 60 18 143/90 03/08/17 09:00 60 18 03/08/17 06:41 97.8 F 53 L 16 127/86 99 03/08/17 03:28 98.1 F 60 16 120/67 98 03/07/17 21:00 98.0 F 65 16 122/74 97 03/07/17 17:00 98.0 F 70 18 122/74 97 03/07/17 13:00 98.6 F 61 18 123/67 98 - General General Appearance: Alert, Oriented x3, Cooperative, No acute distress Limitations: No limitations - Head Head exam: Normal inspection - Eye Eye exam: Normal appearance, PERRL, EOMI Pupils: Normal accommodation - ENT ENT exam: Normal exam, Mucous membranes moist, Normal external ear exam, Normal orophraynx Ear exam: Normal external inspection. negative: External canal tenderness Nasal Exam: Normal inspection. negative: Discharge, Sinus tenderness Mouth exam: Normal external inspection, Tongue normal Teeth exam: Normal inspection. negative: Dental caries Throat exam: Normal inspection. negative: Tonsillar erythema, Tonsillar exudate - Neck Neck exam: Normal inspection, Full ROM. negative: Tenderness - Respiratory Respiratory exam: Normal lung sounds bilaterally. negative: Respiratory distress - Cardiovascular Cardiovascular Exam: Regular rate, Normal rhythm, Normal heart sounds - GI/Abdominal GI/Abdominal exam: Soft, Diminished bowel sounds, Tenderness (RUQ> LLQ and LUQ- overall improved and feels like a "dull ache" rather than the previous sensation of stabbing). negative: Guarding, Rebound - Rectal Rectal exam: Deferred - exam: Deferred - Extremities Extremities exam: Normal inspection, Full ROM, Normal capillary refill. negative: Tenderness - Back Back exam: Reports: Normal inspection, Full ROM. Denies: Muscle spasm, Rash noted, Tenderness - Neurological Neurological exam: Alert, CN II-XII intact, Normal gait, Oriented X3 - Psychiatric Psychiatric exam: Normal affect, Normal mood - Skin Skin exam: Dry, Intact, Normal color, Warm Assessment and Plan - Assessment and Plan (1) Acute pancreatitis Current Visit: Yes Status: Acute Qualifiers: Pancreatitis type: idiopathic Acute pancreatitis complication: unspecified Qualified Code(s): K85.00 - Idiopathic acute pancreatitis without necrosis or infection Base Code: K85.90 - ACUTE PANCREATITIS WITHOUT NECROSIS OR INFECTION, UNSP Comment: 03/08- unclear etiology? - abdominal pain somewhat improved today - did not tolerate clear fluid trial last evening - continue D5NS @125/hr for nutritional support, blood sugars stable - AMINTA positive speckled with titre 1:40, will defer to GI upon consult, consider rheumatology consult as outpatient - consider surgical consult with Dr Arguelles as outpatient for gallstones - abdominal U/S showing gallbladder wall thickening- not found on initial CT - HIDA scan without evidence of CBD of cystic duct obstruction, EF 78% - Cefazolin DC in light of negative HIDA - remains afebrile, labs unremarkable, VSS - patient denies medication use, etoh use, or h/o gallbladder issues - CTA: pancreatitis, large calified gallstone in the gallbladder - NPO, ice chips, IV pain control and anti emetic PRN - GI consult today - stool studies pending (2) RUQ abdominal pain Current Visit: Yes Status: Acute Base Code: R10.11 - RIGHT UPPER QUADRANT PAIN Comment: 03/08- unclear etiology? - abdominal pain somewhat improved today - did not tolerate clear fluid trial last evening - continue D5NS @125/hr for nutritional support, blood sugars stable - AMINTA positive speckled with titre 1:40, will defer to GI upon consult, consider rheumatology consult as outpatient - consider surgical consult with Dr Arguelles as outpatient for gallstones - abdominal U/S showing gallbladder wall thickening- not found on initial CT - HIDA scan without evidence of CBD of cystic duct obstruction, EF 78% - Cefazolin DC in light of negative HIDA - remains afebrile, labs unremarkable, VSS - patient denies medication use, etoh use, or h/o gallbladder issues - CTA: pancreatitis, large calified gallstone in the gallbladder - NPO, ice chips, IV pain control and anti emetic PRN - GI consult today - stool studies pending (3) DVT prophylaxis Current Visit: Yes Status: Acute Base Code: [id number] - Comment: 03/08- low risk. SCDs WIB. patient ambulating the room. (4) Full code status Current Visit: Yes Status: Acute Base Code: Z78.9 - OTHER SPECIFIED HEALTH STATUS Comment: 03/08/17- pt is full code Results - Labs Result Diagrams: 03/07/17 06:30 03/07/17 06:30 Labs Last 24 Hours: Laboratory Results - last 24 hr 03/06/17 03/07/17 03/08/17 06:20 22:00 06:29 BUN 27.5 H POC Glucose 122 H 97 DVT/PE Assessment - Risk for VTE Risk for VTE: No Risk Level: Low Risk Assessment Date: 03/05/17 Risk Assessment Time: 12:00 VTE Orders Placed or Will Be Placed: Yes - Active Medicaitons Current Medications: Current Medications Hydromorphone HCl (Dilaudid) 0.5 mg IVP Q4HR PRN PRN Reason: Abdominal Pain Last Admin: 03/08/17 11:16 Dose: 0.5 mg Sodium Chloride () 1,000 mls @ 225 mls/hr IV .Q4H27M PRN PRN Reason: LARGE VOLUME IV Last Infusion: 03/07/17 07:43 Dose: Infused Dextrose/Sodium Chloride () 1,000 mls @ 125 mls/hr IV .Q8H PRN PRN Reason: LARGE VOLUME IV Last Admin: 03/08/17 06:13 Dose: 125 mls/hr Ondansetron HCl (Zofran) 4 mg IVP Q4H PRN PRN Reason: NAUSEA Last Admin: 03/07/17 18:58 Dose: 4 mg Pantoprazole Sodium (Protonix Iv) 40 mg IVP Q12HR MARILUZ Last Admin: 03/08/17 11:16 Dose: 40 mg Temazepam (Restoril) 15 mg PO QHS PRN PRN Reason: INSOMNIA Last Admin: 03/06/17 22:27 Dose: 15 mg AMI Plan - Labs Result Diagrams: 03/07/17 06:30 03/07/17 06:30
[2017-03-08] MEDS: ONDANSETRON HCL IV 4 MG/2 ML VIAL IVP PRN (19:13)
[2017-03-09] MEDS: DEXTROSE 5 % AND 0.9 % NACL 1,000 ML IV PRN (07:55)
--- NOTE | 2017-03-09 09:41 | Physician Progress Note ---
Subjective - Date Date of Physician Progress Note: 03/09/17 - Subjective Subjective Comment: pain remains dull to RUQ of abdomen. NO diarrhea or vomiting. Continues to not tolerate PO trials of clear liquids. Afebrile Objective - Vital Signs Vital Signs: Vital Signs - Last 24 Hrs Temp Pulse Resp BP Pulse Ox 03/09/17 06:20 98.1 F 55 L 16 111/70 96 03/08/17 23:00 98.5 F 62 16 135/74 98 03/08/17 18:53 60 18 108/63 98 03/08/17 15:00 98.6 F 51 L 18 125/75 98 03/08/17 11:00 98.4 F 60 18 143/90 - General General Appearance: Alert, Oriented x3, Cooperative, No acute distress Limitations: No limitations - Head Head exam: Normal inspection - Eye Eye exam: Normal appearance, PERRL, EOMI Pupils: Normal accommodation - ENT ENT exam: Normal exam, Mucous membranes moist, Normal external ear exam, Normal orophraynx Ear exam: Normal external inspection. negative: External canal tenderness Nasal Exam: Normal inspection. negative: Discharge, Sinus tenderness Mouth exam: Normal external inspection, Tongue normal Teeth exam: Normal inspection. negative: Dental caries Throat exam: Normal inspection. negative: Tonsillar erythema, Tonsillar exudate - Neck Neck exam: Normal inspection, Full ROM. negative: Tenderness - Respiratory Respiratory exam: Normal lung sounds bilaterally. negative: Respiratory distress - Cardiovascular Cardiovascular Exam: Regular rate, Normal rhythm, Normal heart sounds - GI/Abdominal GI/Abdominal exam: Soft, Diminished bowel sounds, Tenderness (RUQ> LLQ and LUQ- overall improved and feels like a "dull ache" rather than the previous sensation of stabbing). negative: Guarding, Rebound - Rectal Rectal exam: Deferred - exam: Deferred - Extremities Extremities exam: Normal inspection, Full ROM, Normal capillary refill. negative: Tenderness - Back Back exam: Reports: Normal inspection, Full ROM. Denies: Muscle spasm, Rash noted, Tenderness - Neurological Neurological exam: Alert, CN II-XII intact, Normal gait, Oriented X3 - Psychiatric Psychiatric exam: Normal affect, Normal mood - Skin Skin exam: Dry, Intact, Normal color, Warm Assessment and Plan - Assessment and Plan (1) Acute pancreatitis Current Visit: Yes Status: Acute Qualifiers: Pancreatitis type: idiopathic Acute pancreatitis complication: unspecified Qualified Code(s): K85.00 - Idiopathic acute pancreatitis without necrosis or infection Base Code: K85.90 - ACUTE PANCREATITIS WITHOUT NECROSIS OR INFECTION, UNSP Comment: 03/09- Most likely biliary colic from gallstones as per negative work up for autoimmune, hypertriglyceridemia, diabetic, infectious work up - patient denies medication use, etoh use, or h/o gallbladder issues - abdominal U/S showing gallbladder wall thickening- not found on initial CT - CTA: pancreatitis, large calified gallstone in the gallbladder - HIDA scan without evidence of CBD of cystic duct obstruction, EF 78% - AMINTA positive speckled with titre 1:40, consider rheumatology consult as outpatient - abdominal pain somewhat improved today - continues to not tolerate PO intake of clears - continue D5NS @125/hr for nutritional support, blood sugars stable - spoke with Dr Arguelles yesterday, agrees for cholecystectomy 03/09 - Cefazolin DC in light of negative HIDA - remains afebrile, labs unremarkable, VSS - NPO, ice chips, IV pain control and anti emetic PRN - GI consult- recommends cholecystectomy - stool studies pending- less likely infectious etiology as she has not had any further stooling since first day of admit (2) RUQ abdominal pain Current Visit: Yes Status: Acute Base Code: R10.11 - RIGHT UPPER QUADRANT PAIN Comment: 03/09/17 See above (3) DVT prophylaxis Current Visit: Yes Status: Acute Base Code: [id number] - Comment: 03/09- low risk. SCDs WIB. patient ambulating the room. (4) Full code status Current Visit: Yes Status: Acute Base Code: Z78.9 - OTHER SPECIFIED HEALTH STATUS Comment: 03/09/17- pt is full code Results - Labs Result Diagrams: 03/07/17 06:30 03/07/17 06:30 Labs Last 24 Hours: Laboratory Results - last 24 hr 03/08/17 23:30 POC Glucose 97 DVT/PE Assessment - Risk for VTE Risk for VTE: No Risk Level: Low Risk Assessment Date: 03/05/17 Risk Assessment Time: 12:00 VTE Orders Placed or Will Be Placed: Yes - Active Medicaitons Current Medications: Current Medications Hydromorphone HCl (Dilaudid) 0.5 mg IVP Q4HR PRN PRN Reason: Abdominal Pain Last Admin: 03/08/17 22:59 Dose: 0.5 mg Dextrose/Sodium Chloride () 1,000 mls @ 125 mls/hr IV .Q8H PRN PRN Reason: LARGE VOLUME IV Last Admin: 03/09/17 07:55 Dose: 125 mls/hr Ondansetron HCl (Zofran) 4 mg IVP Q4H PRN PRN Reason: NAUSEA Last Admin: 03/08/17 19:13 Dose: 4 mg Pantoprazole Sodium (Protonix Iv) 40 mg IVP Q12HR MARILUZ Last Admin: 03/08/17 22:59 Dose: 40 mg Temazepam (Restoril) 15 mg PO QHS PRN PRN Reason: INSOMNIA Last Admin: 03/06/17 22:27 Dose: 15 mg AMI Plan - Labs Result Diagrams: 03/07/17 06:30 03/07/17 06:30
[2017-03-09 09:55] LABS: BASO % 0.5 % (0-6); EOS % 6.4 % (0-6); GRAN % 61.8 % (47-80); HEMATOCRIT 45.1 % (35.0-47.0); HEMOGLOBIN 15.2 gm/dl (11.6-16.0); LYMPH % 25.4 % (16-45); MEAN CELL VOLUME 88.3 fl (81-97); MEAN CORPUSCULAR HEMOGLOBIN 29.7 pg (27-33); MEAN CORPUSCULAR HGB CONC 33.7 g/dl (32-36); MEAN PLATELET VOLUME 9.4 fl (7.4-10.4); MONO % 5.9 % (0-9); PLATELET COUNT 395 K/uL (130-400); RED BLOOD COUNT 5.11 M/uL (3.80-5.40); RED CELL DISTRIBUTION WIDTH 12.3 % (11.5-14.5); WHITE BLOOD COUNT W/O DIFF 5.9 K/uL (4.2-12.2)
[2017-03-09 10:10] LABS: ALB/GLOB RATIO 1.4 (1.1-1.8); ALBUMIN 4.1 g/dL (4.0-5.0); ALKALINE PHOSPHATASE 71 U/L (35-104); ALT/SGPT 10 U/L (<33); AST/SGOT 16 U/L (10.0-35.0); BLOOD UREA NITROGEN 7.7 mg/dL (12.6-42.6); CREATININE 0.7 mg/dL (0.5-0.9); EST GLOMERULAR FILTRATION RATE > 60 mL/min; GLUCOSE,RANDOM 104 mg/dL (74-109); TOTAL PROTEIN 7.1 g/dL (6.6-8.7)
[2017-03-09] MEDS: PANTOPRAZOLE SODIUM IV 40 MG VIAL IVP SCH ×2 (11:33→22:07)
[2017-03-09] MEDS ORDERED: MECLIZINE 25 MG TABLET PO ONE (13:13)
[2017-03-09] MEDS ORDERED: METOCLOPRAMIDE 10 MG TABLET PO ONE (13:13)
[2017-03-09] MEDS ORDERED: FAMOTIDINE 20MG TABLET PO ONE (13:13)
[2017-03-09] MEDS ORDERED: ACETAMINOPHEN 1,000 MG/100 ML BTL IVPB ONE (13:13)
[2017-03-09] MEDS ORDERED: NEOSTIGMINE 1 MG/1 ML,10ML VIAL IV ONE (14:00)
[2017-03-09] MEDS ORDERED: GLYCOPYRROLATE 0.2 MG/ML ML IV ONE (14:00)
[2017-03-09] MEDS ORDERED: LIDOCAINE 2% MDV (20MG/ML) 20ML VIAL IV ONE (14:00)
[2017-03-09] MEDS ORDERED: ROCURONIUM BROMIDE 50MG/5ML VIAL IV ONE (14:00)
[2017-03-09] MEDS ORDERED: DEXAMETHASONE 4 MG/ML 1ML VIAL IVP ONE (14:00)
[2017-03-09] MEDS ORDERED: EPHEDRINE SULFATE 50 MG/ML ML IV ONE (14:00)
[2017-03-09] MEDS ORDERED: SEVOFLURANE 250 ML INH ONE (14:00)
[2017-03-09] MEDS ORDERED: ONDANSETRON HCL IV 4 MG/2 ML VIAL IVP ONE (14:00)
[2017-03-09] MEDS ORDERED: PROPOFOL 10 MG/ML VIAL IV ONE (14:00)
[2017-03-09] MEDS ORDERED: BUPIVACAINE 0.25% W/EPI MPF 30ML VIAL IVP ONE (14:00)
[2017-03-09] MEDS ORDERED: SUFENTANIL CITRATE 50 MCG/ML AMPUL IV ONE (14:00)
[2017-03-09] MEDS ORDERED: KETOROLAC 30 MG/ML VIAL IVP ONE (14:00)
[2017-03-09] MEDS: HYDROMORPHONE HCL 1MG/ML **SYRINGE IVP PRN ×2 (18:29→22:29)
[2017-03-09] MEDS: TEMAZEPAM 15 MG CAPSULE PO PRN (22:07)
[2017-03-09] MEDS ORDERED: DEXTROSE 5 % AND 0.9 % NACL 1,000 ML IV PRN (23:13)
[2017-03-10] MEDS: HYDROMORPHONE HCL 1MG/ML **SYRINGE IVP PRN ×2 (02:44→06:56)
[2017-03-10] MEDS: HYDROCODONE/APAP 7.5/325MG TABLET PO PRN ×3 (08:37→20:47)
[2017-03-10] MEDS: PANTOPRAZOLE SODIUM IV 40 MG VIAL IVP SCH (11:14)
--- NOTE | 2017-03-10 18:24 | Physician Progress Note ---
Subjective - Date Date of Physician Progress Note: 03/11/17 - Subjective Subjective Comment: S/P lap lisa yesterday. Has remained afebrile. No appetite. Denies vomiting, nausea, diarrhea. No new nursing concerns. Did have an Ensure and half glass of milk this am with little pain, mild bloating. Patient reports is apprehensive to eat because she has been so painful. Objective - Vital Signs Vital Signs: Vital Signs - Last 24 Hrs Temp Pulse Resp BP Pulse Ox 03/10/17 17:10 66 18 116/80 100 03/10/17 14:00 97.5 F L 70 18 126/91 100 03/10/17 10:00 97.6 F 56 L 16 125/80 100 03/09/17 21:52 96.9 F L 55 L 18 151/84 100 03/09/17 18:30 62 143/85 - General General Appearance: Alert, Oriented x3, Cooperative, No acute distress Limitations: No limitations - Head Head exam: Normal inspection - Eye Eye exam: Normal appearance, PERRL, EOMI Pupils: Normal accommodation - ENT ENT exam: Normal exam, Mucous membranes moist, Normal external ear exam, Normal orophraynx Ear exam: Normal external inspection. negative: External canal tenderness Nasal Exam: Normal inspection. negative: Discharge, Sinus tenderness Mouth exam: Normal external inspection, Tongue normal Teeth exam: Normal inspection. negative: Dental caries Throat exam: Normal inspection. negative: Tonsillar erythema, Tonsillar exudate - Neck Neck exam: Normal inspection, Full ROM. negative: Tenderness - Respiratory Respiratory exam: Normal lung sounds bilaterally. negative: Respiratory distress - Cardiovascular Cardiovascular Exam: Regular rate, Normal rhythm, Normal heart sounds - GI/Abdominal GI/Abdominal exam: Soft, Diminished bowel sounds, Tenderness (RUQ> LLQ and LUQ- overall improved and feels like a "dull ache" rather than the previous sensation of stabbing), Other (lap lisa incisions without evidence of infection or acute bleed, steristrips intact). negative: Guarding, Rebound - Rectal Rectal exam: Deferred - exam: Deferred - Extremities Extremities exam: Normal inspection, Full ROM, Normal capillary refill. negative: Tenderness - Back Back exam: Reports: Normal inspection, Full ROM. Denies: Muscle spasm, Rash noted, Tenderness - Neurological Neurological exam: Alert, CN II-XII intact, Normal gait, Oriented X3 - Psychiatric Psychiatric exam: Normal affect, Normal mood - Skin Skin exam: Dry, Intact, Normal color, Warm Assessment and Plan - Assessment and Plan (1) Acute pancreatitis Current Visit: Yes Status: Acute Qualifiers: Pancreatitis type: idiopathic Acute pancreatitis complication: unspecified Qualified Code(s): K85.00 - Idiopathic acute pancreatitis without necrosis or infection Base Code: K85.90 - ACUTE PANCREATITIS WITHOUT NECROSIS OR INFECTION, UNSP Comment: 03/10- Most likely biliary colic from gallstones as per negative work up for autoimmune, hypertriglyceridemia, diabetic, infectious work up - overall improvement - lap lisa 03/09/17 without complication - likely discharge home 03/11 should she be tolerating PO intake and pain controlled on PO meds - patient denies medication use, etoh use, or h/o gallbladder issues - abdominal U/S showing gallbladder wall thickening- not found on initial CT - CTA: pancreatitis, large calified gallstone in the gallbladder - HIDA scan without evidence of CBD of cystic duct obstruction, EF 78% - AMINTA positive speckled with titre 1:40, consider rheumatology consult as outpatient - abdominal pain somewhat improved today - continues to not tolerate PO intake of clears - continue D5NS @125/hr for nutritional support, blood sugars stable - spoke with Dr Arguelles yesterday, agrees for cholecystectomy 03/09 - Cefazolin DC in light of negative HIDA - remains afebrile, labs unremarkable, VSS - NPO, ice chips, IV pain control and anti emetic PRN - GI consult- recommends cholecystectomy - stool studies pending- less likely infectious etiology as she has not had any further stooling since first day of admit (2) RUQ abdominal pain Current Visit: Yes Status: Acute Base Code: R10.11 - RIGHT UPPER QUADRANT PAIN Comment: 03/09/17 See above (3) DVT prophylaxis Current Visit: Yes Status: Acute Base Code: [id number] - Comment: 03/10- low risk. SCDs WIB. patient ambulating the room. (4) Full code status Current Visit: Yes Status: Acute Base Code: Z78.9 - OTHER SPECIFIED HEALTH STATUS Comment: 03/10/17- pt is full code Results - Labs Result Diagrams: 03/09/17 09:52 03/09/17 09:52 DVT/PE Assessment - Risk for VTE Risk for VTE: No Risk Level: Low Risk Assessment Date: 03/05/17 Risk Assessment Time: 12:00 VTE Orders Placed or Will Be Placed: Yes - Active Medicaitons Current Medications: Current Medications Hydrocodone Bitart/Acetaminophen ([place] 7.5mg/325mg) 1 each PO Q4H PRN PRN Reason: Pain - General Last Admin: 03/10/17 14:52 Dose: 1 each Hydromorphone HCl (Dilaudid) 0.5 mg IVP Q4HR PRN PRN Reason: Abdominal Pain Last Admin: 03/10/17 06:56 Dose: 0.5 mg Ondansetron HCl (Zofran) 4 mg IVP Q4H PRN PRN Reason: NAUSEA Last Admin: 03/08/17 19:13 Dose: 4 mg Pantoprazole Sodium (Protonix) 40 mg PO DAILYAC MARILUZ Temazepam (Restoril) 15 mg PO QHS PRN PRN Reason: INSOMNIA Last Admin: 03/09/17 22:07 Dose: 15 mg AMI Plan - Labs Result Diagrams: 03/09/17 09:52 03/09/17 09:52
[2017-03-10] MEDS: SENNOSIDES/DOCUSATE SODIUM UD CAPSULE PO PRN (20:48)
[2017-03-11] MEDS: HYDROCODONE/APAP 7.5/325MG TABLET PO PRN ×3 (02:12→12:01)
[2017-03-11] MEDS ORDERED: PANTOPRAZOLE SODIUM 40 MG TABLET PO SCH (07:00)
--- NOTE | 2017-03-11 11:46 | Discharge Summary ---
Providers Discharge Summary Date: 03/11/17 Date of admission: 03/05/17 11:33 Expected Date of Discharge: 03/11/17 Attending physician: DIANE MATTHEWS Consults: Consult Orders 03/06/17 09:48 Consult NOW Consulting Provider: DONNA MCGRAW Physician Instructions: Reason For Exam: pancreatitis with normal lipase Physical Exam - Vital Signs Vital Signs: Vital Signs - Last 24 Hrs Temp Pulse Resp BP Pulse Ox 03/11/17 09:58 98.4 F 74 18 124/80 95 03/11/17 02:00 98.5 F 63 16 125/65 97 03/10/17 19:33 98.3 F 71 18 114/66 98 03/10/17 17:10 66 18 116/80 100 03/10/17 14:00 97.5 F L 70 18 126/91 100 - General General Appearance: Alert, Oriented x3, Cooperative, No acute distress Limitations: No limitations - Head Head exam: Normal inspection - Eye Eye exam: Normal appearance, PERRL, EOMI Pupils: Normal accommodation - ENT ENT exam: Normal exam, Mucous membranes moist, Normal external ear exam, Normal orophraynx Ear exam: Normal external inspection. negative: External canal tenderness Nasal Exam: Normal inspection. negative: Discharge, Sinus tenderness Mouth exam: Normal external inspection, Tongue normal Teeth exam: Normal inspection. negative: Dental caries Throat exam: Normal inspection. negative: Tonsillar erythema, Tonsillar exudate - Neck Neck exam: Normal inspection, Full ROM. negative: Tenderness - Respiratory Respiratory exam: Normal lung sounds bilaterally. negative: Respiratory distress - Cardiovascular Cardiovascular Exam: Regular rate, Normal rhythm, Normal heart sounds - GI/Abdominal GI/Abdominal exam: Soft, Diminished bowel sounds, Tenderness (RUQ> LLQ and LUQ- overall improved and feels like a "dull ache" rather than the previous sensation of stabbing), Other (lap lisa incisions without evidence of infection or acute bleed, steristrips intact). negative: Guarding, Rebound - Rectal Rectal exam: Deferred - exam: Deferred - Extremities Extremities exam: Normal inspection, Full ROM, Normal capillary refill. negative: Tenderness - Back Back exam: Reports: Normal inspection, Full ROM. Denies: Muscle spasm, Rash noted, Tenderness - Neurological Neurological exam: Alert, CN II-XII intact, Normal gait, Oriented X3 - Psychiatric Psychiatric exam: Normal affect, Normal mood - Skin Skin exam: Dry, Intact, Normal color, Warm Hospitalization - Hospitalization Admission Diagnosis: acute pancreatitis - Problem List/Discharge Diagnosis (1) Acute pancreatitis Status: Acute Discharge Diagnosis: Pancreatitis type: idiopathic Acute pancreatitis complication: unspecified Qualified Code(s): K85.00 - Idiopathic acute pancreatitis without necrosis or infection Base Code: K85.90 - ACUTE PANCREATITIS WITHOUT NECROSIS OR INFECTION, UNSP Comment: 03/11- Most likely biliary colic from gallstones as per negative work up for autoimmune, hypertriglyceridemia, diabetic, infectious work up - abdominal U/S showing gallbladder wall thickening- not found on initial CT - CTA: pancreatitis, large calified gallstone in the gallbladder - HIDA scan without evidence of CBD of cystic duct obstruction, EF 78% - overall improvement - lap lisa 03/09/17 without complication - discharge home 03/11/17 (2) RUQ abdominal pain Status: Acute Base Code: R10.11 - RIGHT UPPER QUADRANT PAIN Comment: 03/11/17 See above (3) DVT prophylaxis Status: Acute Base Code: [id number] - Comment: 03/11- low risk. SCDs WIB. patient ambulating the room. (4) Full code status Status: Acute Base Code: Z78.9 - OTHER SPECIFIED HEALTH STATUS Comment: 03/11- pt is full code - Hospitalization Course Disposition: Home, Self-Care Hospital Course: 56 yo female admitted w/ acute pancreatitis. PMHx is unremarkable. Patient presented w/ 5 days of abdominal pain. Described as bloating, pressure , sharp. Intermittent, Located in epigastrium and RUQ. Aggravated by any po intake including water. Alleviated by sitting still, fasting. Associated symptoms include nausea, vomiting, loose stool, dizziness/fever (none since last sunday), gas and bloating. In addition, patient reports 15-20 lb's unintentional weight loss. upon presentation, T 97.9, HR 103, BP 143/104, RR 20, pulse ox 97. CBC, CMP relatively unremarkable. amylase, lipase and lactic acid are normal. CTA: suggests pancreatitis. Patient given IV bolus of NS and admitted for further medical management. This afternoon, patient is lying in bed with family at bedside. Admits to intermittent epigastric pain radiating to RUQ of abdomen. States she's frustrated and doesn't understand why she has pancreatitis. Denies fever, chills, n/v, cough, sob, cp, headache, dizziness, lightheadedness, dysuria, hematuria, or skin color changes. She denies any h/o gallbladder & pulmonary issues. No ETOH use. denies h/o smoking or drug use. She's not on any outpatient medications. No family h/o autoimmune disease. Does not have a family doctor. Denies recent hospitalization, sick contacts or travel. 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 States she went to an urgent care in December. She was told she was dehydrated and had a possible infection. She was started on Cephalexin at that time. Cephalexin was then stopped as this caused her loose, watery stool. She states that since being on Cephalexin, she has experienced 2-3 loose stools daily. Believes she's lost 15-20 #'s unintentionally since December. Patient looking to move closer to [place] and would like to est care with PCP in that area. PCP: None Procedures: Imaging and X-Rays 03/05/17 12:47 ABDOMEN, COMPLETE [US] Stat 03/07/17 11:00 Hepatobiliary Scan w Function [NM] Stat Abnormal Labs: Abnormal Lab Results 03/06/17 03/07/17 03/07/17 Range/Units 06:20 06:30 08:50 Eosinophils % (0-6) % BUN 27.5 H (6-20) mg/dL POC Glucose 147 H (70-110) mg/dL Random Glucose 66 L 59 L (74-109) mg/dL Total Protein 6.0 L 6.2 L (6.6-8.7) g/dL Albumin 3.5 L 3.5 L (4.0-5.0) g/dL 03/07/17 03/09/17 03/09/17 Range/Units 22:00 09:52 09:52 Eosinophils % 6.4 H (0-6) % BUN 7.7 L (6-20) mg/dL POC Glucose 122 H (70-110) mg/dL Random Glucose (74-109) mg/dL Total Protein (6.6-8.7) g/dL Albumin (4.0-5.0) g/dL Condition at Discharge: (1) Good Discharge Medications - Discharge Medications Prescriptions: Hydrocodone/Acetaminophen [Oral 7.5mg/325mg] 1 tab PO Q6H PRN #15 tab PRN Reason: Pain - General Sennosides/Docusate Sodium [Senna Plus] 2 each PO BID PRN #120 tab PRN Reason: Constipation Home Medications: Ambulatory Orders Hydrocodone/Acetaminophen [Oral 7.5mg/325mg] 1 tab PO Q6H PRN #15 tab 03/11/17 [Last Taken Unknown] Sennosides/Docusate Sodium [Senna Plus] 2 each PO BID PRN #120 tab 03/11/17 [ Last Taken Unknown] Discharge Plan - Discharge Instructions Activity at Discharge: Increase Activity as Tolerated Diet at Discharge: Advance to Usual Diet, Low Fat, Low Cholesterol Wound Primary Dressing Type: Steri Strips Instructions: Pancreatitis (DC), Laparoscopic Cholecystectomy (DC) Additional Instructions: - keep steri strips intact until they fall off naturally - no not submerge abdomen in water until cleared by surgeon - follow up with Dr Arguelles as scheduled - follow up with PCP 1-2 weeks - may return to full non-restricted work hours in 2 weeks - no lifting more than 10lb x 2 weeks - may work restricted work hours x 2 weeks - advance diet to soft and bland as tolerated - drink ensure or carnation instant breakfast to help replace nutritional stores Quality Measures - Quality Measures Quality Measures: Documentation of Current Medications in Medical Record, Screening for High Blood Pressure and F/U Documented - Current Medications Quality Measure: Measure #130: Documentation of Current Medications Documentation of Current Medications: <Current Medications Documented/Reviewed> [[id number]] - Blood Pressure Screening Quality Measure: Screening for High Blood Pressure and Follow-Up Documented Does Patient Have Any of the Following: No Blood Pressure Classification: Pre-Hypertensive BP Reading Systolic Measurement: 128 Diastolic Measurement: 74 Screening for High Blood Pressure: < Pre-Hypertensive BP, F/U Documented > [ G8950] Pre-Hypertensive Follow-up Interventions: Follow-up with rescreen every year. - Elder Abuse Suspicion Index EASI Reference Information: Liseth LUNSFORD, Phoenix C, Nina D, Leonidas Jo.Development and validation of a tool to assist physicians identification of elder abuse: The Elder Abuse Suspicion Index (EASI ). Journal of Elder Abuse and Neglect, 2008; 20 (3): 276-300.
[2017-03-11] MEDS: SENNOSIDES/DOCUSATE SODIUM UD CAPSULE PO PRN (12:01)
--- NOTE | 2017-03-13 11:30 | Medical Records Consult ---
REASON FOR CONSULTATION: Abdominal pain. HISTORY OF PRESENT ILLNESS: The patient is a 56-year-old woman who was admitted with onset of upper abdominal pain which began several days prior to admission. She states that pain began approximately last Sunday with epigastric bloating and discomfort like a band across the upper abdomen. She denied any radiation into the back or the right shoulder or flank. She had associated nausea, vomiting, bloating, and intense pain. She denies fever or chills. She has never had similar pain. Her pain is slowly improving with narcotics and IV fluids. She denies any melena or hematochezia or hematemesis. On presentation, her amylase and lipase levels were normal; however, her CT of abdomen suggests pancreatitis particularly in the tail of the pancreas. Abdominal ultrasound revealed cholelithiasis with thickened gallbladder wall. There was no pericholecystic fluid noted. She denies any similar episodes. PAST MEDICAL HISTORY: None. PAST SURGICAL HISTORY: Noncontributory. FAMILY HISTORY: Noncontributory. REVIEW OF SYSTEMS: Noted per the H&P. SOCIAL HISTORY: Uses alcohol rarely. Denies tobacco use or illicit drugs. ALLERGIES: None. PHYSICAL EXAMINATION: VITAL SIGNS: Temperature 98.4, pulse 60, respirations 18, blood pressure 143/90. GENERAL: She is awake, alert, oriented x3. Nontoxic in appearance. Appears to be in minimal distress. HEENT: Head is normocephalic and atraumatic. No temporal muscle wasting was noted. Skin was warm and dry. No rashes were noted. No jaundice was noted. Sclerae are anicteric. Extraocular muscles intact. No conjunctival injection noted. NECK: Supple. Trachea is midline. Thyroid nonpalpable. HEART: Regular rate and rhythm without murmur. LUNGS: Clear to auscultation without wheezes, rales, or rhonchi. ABDOMEN: Soft. Positive bowel sounds. No guarding, rebound, or rigidity. There was tenderness in the epigastrium and left and right upper quadrants. EXTREMITIES: No clubbing, cyanosis, or edema. LABORATORY DATA: Yesterday, white count 6.0, hemoglobin 14.0, hematocrit 41.4, platelets 300. Liver chemistries are entirely within normal limits other than an albumin of 3.5. Her amylase and lipase were both within normal limits as well. AMINTA was positive and speckled at 1:40. Her IgG 4 level was normal. Clostridium difficile toxin was pending. Imaging summary as aforementioned. IMPRESSION: 1. Pancreatitis, suspect related to gallstones. 2. Cholelithiasis. RECOMMENDATION: The patient should have a cholecystectomy strongly considered by General Surgery. I would suggest this be done sooner rather than later. In addition, we will check a CA 19-9. If her symptoms do not resolve promptly, she may require further investigation such as an endoscopic ultrasound but at this point, it would appear most reasonable that she has gallstone-induced pancreatitis despite the fact she has no biliary ductal dilation. As always, thank you for allowing me to participate in the healthcare of your patient. CC: DUKE Hdz
--- NOTE | 2017-03-13 11:30 | Medical Records Consult ---
DATE OF CONSULTATION: 03/09/2017 REASON FOR CONSULTATION: Gallstone pancreatitis. HISTORY OF PRESENT ILLNESS: The patient is a 56-year-old female who was admitted to the hospital on Sunday with epigastric pain which radiates to her back. CT scan was done which did show findings consistent with pancreatitis with inflammation of the body and tail of the pancreas. There was no ascites, no ductal dilatation. Her laboratory values were normal. Lipase was normal. White count was normal. Bilirubin is normal. Imaging studies also did reveal cholelithiasis. She steadily got better throughout the course of the week and did requires cholecystectomy prior to leaving. She still had ongoing pain with diet and therefore she was kept in the hospital. About 2 days ago, her pain increased and they felt this was due to her gallbladder. Therefore, HIDA scan was done which did show a gallbladder filling as well as an ejection fraction of 78%. PAST MEDICAL HISTORY: Negative for any significant illnesses. PAST SURGICAL HISTORY: Abdominoplasty. CURRENT MEDICATIONS: None. ALLERGIES: None. SOCIAL HISTORY: She has a rare alcohol history. PHYSICAL EXAMINATION: VITAL SIGNS: Stable. She is afebrile. HEART: Regular rate and rhythm. LUNGS: Clear. ABDOMEN: Soft. There is an abdominoplasty scar lower as well as on the navel. There is minimal abdominal tenderness. EXTREMITIES: No trace of edema. IMPRESSION: Pancreatitis, most likely gallstone pancreatitis. PLAN: We did discuss cholecystectomy versus ongoing medical management. She desires surgical intervention. Risks include bleeding, infection, ductal injury, possible conversion to open, postoperative bile leak, nonresolution of her symptoms. She understood this fully. This will be scheduled for later today. Thank you for this referral. LEONCIO
--- NOTE | 2017-03-14 09:49 | Operative Note ---
DATE OF SURGERY: 03/09/2017 Surgeon: Blue Arguelles DO PREOPERATIVE DIAGNOSIS: Gallstone pancreatitis. POSTOPERATIVE DIAGNOSIS: Gallstone pancreatitis. OPERATION: Laparoscopic cholecystectomy. Indication: The patient is a 56-year-old female who was admitted to the hospital with pancreatitis. She had cholelithiasis noted. [place] alcohol history. She progressively did not get any better and developed some right subcostal discomfort. She wanted a cholecystectomy prior to leaving the hospital. We discussed cholecystectomy. Risks, benefits, and alternatives were discussed. RHe wished to proceed with surgical intervention. His risks include but are not limited to bleeding, infection, ductal injury, possible conversion to open, postoperative bile leak. She understood this fully. PROCEDURE: Therefore, after consent was signed and questions answered, she was taken to the operating room and placed in a supine position. General anesthesia was administered per the department of anesthesia. The patient's abdomen was prepped and draped in the usual sterile fashion. The supraumbilical region was anesthetized with a total of 2 mL of 0.25% Sensorcaine with epinephrine. A 2 cm supraumbilical incision was made. This was carried down to the anterior rectus fascia. This was incised. Lefty clamps were placed on the fascial edges and brought up into the wound. Stay sutures of 0 Vicryl were placed. We did encounter copious amounts of scarring secondary to her prior abdominoplasty. At this time, the peritoneal cavity was entered bluntly. A 10 mm blunt Makenzie port was placed. At this time, adequate pneumoperitoneum was established. Under direct visualization, additional 5 mm epigastric and two 5 mm right subcostal ports were placed. The patient was rotated into reverse Trendelenburg with rotation to left. The gallbladder was identified. It was noted to be very distended, inflamed, and edematous. At this time, the hepatocystic triangle was thoroughly dissected out. There was no aberrant anatomy, no posterior ductal structures. The distal half of the gallbladder was released from the cystic plate extending our retrocystic window. The cystic duct and cystic artery were clearly identified, each one was doubly clipped and cut in a standard fashion. Due to the inflamed nature of the gallbladder, it essentially peeled off the liver bed. This was then extracted infraumbilically. I did have to stretch the skin and fascia slightly to accommodate the large gallstone. Right upper quadrant was rechecked and found to be hemostatic. No bleeding. No bile leak. No bowel injury noted. The patient was leveled out. The pneumoperitoneum was released. All ports were removed. The fascia was closed with 0 Vicryl in a [id number] fashion. The skin of all 4 ports was closed with 4-0 Vicryl. She was taken to the recovery room in satisfactory condition. FINDINGS AT THE TIME OF SURGERY: Acute on chronic cholecystitis. CC: Dr. Vicenta FANG
== END 2017-03-11 12:59 | disposition home or self-care (01) | DRG 419 ==
LOC: ER 07:18 → MEDSURG 11:33
PROVIDERS: ADMIT Family Medicine; ATTEND Family Medicine
PROC: 0FT44ZZ Resection of Gallbladder, Percutaneous Endoscopic Approach (ICD-10-PCS; principal; 2017-03-09 16:30)
DX: K85.10 Biliary acute pancreatitis without necrosis or infection (principal); Z78.9 Other specified health status
CPT/HCPCS: 36416; 74176; 76700; 78227; 80053; 80061; 81001; 82150; 82787; 82948; 83605; 83690; 85025; 86038; 86039; 86301; 96360; 96361; 99223; 99232; 99233; 99239; 99284; C9113; J1170; J1885; J2405; J2710; J7030; J7042